=== PATIENT | female | born 2000 | race Asian ===

== ENCOUNTER 2021-01-04 17:54 | Emergency (ER) | payer MEDICAID ==
[~2021-01-04] VITALS: Ht 149.9 cm; Wt 59.1 kg
[~2021-01-04 17:54] MED LIST: NOCURR
[2021-01-04] MEDS ORDERED: MethylPREDNISolone SOD SUCC 125 MG/2 ML VIAL IVP ONE (18:15)
[2021-01-04] MEDS ORDERED: DiphenhydrAMINE HCL 25 MG CAPSULE PO ONE (18:15)
[2021-01-04] MEDS ORDERED: MethylPREDNISolone SOD SUCC 125 MG/2 ML VIAL IM ONE (18:30)
[2021-01-04 19:15] VITALS: BP 118/76
== END 2021-01-04 19:22 | disposition home or self-care (01) ==
LOC: EMS 18:00
DX: L50.0 Allergic urticaria (principal)
CPT/HCPCS: 96372; 99283; J2930; 99284

== ENCOUNTER 2022-02-25 13:53 | Inpatient (IN) | payer MEDICAID ==
[~2022-02-25] VITALS: Ht 149.9 cm; Wt 56.8 kg
[2022-02-25 17:17] LABS: APPEARANCE,URINE TURBID (CLEAR); GLUCOSE, URINE (UA) NEGATIVE (NEGATIVE); KETONES,URINE NEGATIVE (NEGATIVE); LEUKOCYTE ESTERASE ,URINE LARGE (NEGATIVE); NITRATE,URINE POSITIVE (NEGATIVE); OCCULT BLOOD,URINE SMALL (NEGATIVE); PH,URINE 5.5 (5.0-8.0); PROTEIN,URINE 100-200,SEE CONFIRM mg/dL (NEGATIVE); SPECIFIC GRAVITIY, URINE 1.011 (1.003-1.030)
[2022-02-25 17:24] LABS: BILIRUBIN,URINE SMALL (NEGATIVE)
[2022-02-25 17:29] LABS: BACTERIA,URINE Many /HPF (None Seen); COARSE GRANULAR CASTS,URINE 0-2 /LPF (None Seen); RBC,URINE 0-2 /HPF (0-2); SQUAMOUS EPITHELIAL CELL,UR Few /LPF (None Seen); WBC,URINE 26-50 /HPF (0-5)
[2022-02-25 17:30] LABS: SULFOSALICYLIC ACID,URINE 2+ (Negative)
[2022-02-25] MEDS ORDERED: CEPH-558 PO ×2 (18:11→18:52)
[2022-02-25] MEDS ORDERED: PHEN-846 PO (18:12)
[2022-02-25] MEDS ORDERED: SODIUM CHLORIDE 0.9% 1,000 ML IV ONE ×2 (18:30→20:15)
[2022-02-25] MEDS ORDERED: ONDANSETRON HCL 4 MG/2 ML VIAL IVP ONE (18:30)
[2022-02-25] MEDS ORDERED: SULF-261 PO (18:51)
[2022-02-25] MEDS ORDERED: CefTRIAXone 1 GM/DEXTROSE 50 ML IV ONE (19:00)
[2022-02-25] MEDS ORDERED: IBUPROFEN 600 MG TABLET PO ONE (20:15)
[2022-02-25] MEDS ORDERED: ACETAMINOPHEN 500 MG TABLET PO ONE (20:15)
[2022-02-25 21:06] LABS: BASOPHILS % (AUTO) 0.2 % (0.0-2.0); EOSINOPHILS % (AUTO) 0 % (1.0-6.0); LYMPHOCYTES # (AUTO) 0.7 K/uL (1.0-4.8); LYMPHOCYTES % (AUTO) 3.5 % (22.0-44.0); MEAN CORPUSCULAR HEMOGLOBIN 15.2 pg (26.0-34.0); MEAN CORPUSCULAR HGB CONC 28.1 G/dL (31.0-37.0); MEAN CORPUSCULAR VOLUME 54 fL (80-100); MONOCYTES # (AUTO) 2.6 K/uL (0.1-1.0); MONOCYTES % (AUTO) 12.5 % (2.0-9.0); NEUTROPHILS # (AUTO) 17.2 K/uL (1.8-7.7); NEUTROPHILS % (AUTO) 83.8 % (40.0-70.0); PLATELET COUNT (AUTO) 314 K/uL (150-450); RED BLOOD CELL COUNT(AUTO) 3.88 MIL/uL (4.00-5.20); RED CELL DISTRIBUTION WIDTH 19.6 % (11.5-14.5)
[2022-02-25 21:11] LABS: HEMOGLOBIN 5.9 g/dL (12.0-16.0)
[2022-02-25 21:19] LABS: CALCIUM, TOTAL 8.8 mg/dL (8.8-10.5); CREATININE 1.19 mg/dL (0.60-1.30); POTASSIUM 3.2 mmol/L (3.5-5.1)
[2022-02-25] MEDS ORDERED: ONDANSETRON HCL 4 MG/2 ML VIAL IVP PRN (21:30)
[2022-02-25] MEDS ORDERED: POTASSIUM CHLORIDE 10% 40 MEQ/30 ML LIQUID UDCUP PO ONE (21:45)
[2022-02-25] MEDS ORDERED: SODIUM CHLORIDE 0.9% 250 ML IV ONE (21:46)
[2022-02-25] MEDS ORDERED: MAGNESIUM OXIDE 400 MG TABLET PO PRN (22:15)
[2022-02-25] MEDS ORDERED: MAGNESIUM SULFATE 4 GM/WATER 100 ML IV PRN (22:15)
[2022-02-25] MEDS ORDERED: MAGNESIUM SULFATE 2 GM/WATER 50 ML IV PRN (22:15)
[2022-02-25 22:28] LABS: RETICULOCYTE % (AUTO) 1.9 % (0.5-2.3)
[2022-02-25] MEDS ORDERED: SODIUM CHLORIDE 0.9% 100 ML ONE (22:43)
[2022-02-25] MEDS ORDERED: IOHEXOL 300 MG/ML 100 ML VIAL ONE (22:44)
[2022-02-25 22:51] LABS: ALBUMIN 3.1 g/dL (3.4-5.0)
[2022-02-25] MEDS: RINGERS SOLUTION,LACTATED 1,000 ML IV SCH (22:58)
[2022-02-25] MEDS ORDERED: POTASSIUM CHLORIDE 20 MEQ ER TABLET PO ONE (23:00)
[2022-02-25 23:23] LABS: % IRON SATURATION 1.7 % (22-44)
[2022-02-25 23:30] VITALS: BP 94/53
[2022-02-25 23:45] VITALS: BP 92/54
[2022-02-26] VITALS (11 sets, daily range): BP systolic 88–136; BP diastolic 49–69
[2022-02-26] MEDS ORDERED: RINGERS SOLUTION,LACTATED 500 ML IV ONE (01:00)
[2022-02-26] MEDS ORDERED: INFLUENZA VIRUS VACCINE QVS 2022-23 (6MO+)/PF 60 MCG/0.5 ML SYRINGE IM. ONE (03:45)
[2022-02-26 06:45] LABS: BASOPHILS % (AUTO) 0.1 % (0.0-2.0); EOSINOPHILS % (AUTO) 0.1 % (1.0-6.0); HEMATOCRIT 27.5 % (36-46); HEMOGLOBIN 7.8 g/dL (12.0-16.0); LYMPHOCYTES # (AUTO) 0.9 K/uL (1.0-4.8); LYMPHOCYTES % (AUTO) 4.1 % (22.0-44.0); MEAN CORPUSCULAR HEMOGLOBIN 16.3 pg (26.0-34.0); MEAN CORPUSCULAR HGB CONC 28.3 G/dL (31.0-37.0); MEAN CORPUSCULAR VOLUME 58 fL (80-100); MONOCYTES # (AUTO) 1.7 K/uL (0.1-1.0); MONOCYTES % (AUTO) 7.9 % (2.0-9.0); PLATELET COUNT (AUTO) 311 K/uL (150-450); RED BLOOD CELL COUNT(AUTO) 4.77 MIL/uL (4.00-5.20); RED CELL DISTRIBUTION WIDTH 21.6 % (11.5-14.5)
[2022-02-26 06:51] LABS: NEUTROPHILS % (AUTO) 87.8 % (40.0-70.0)
[2022-02-26 07:06] LABS: ANION GAP 12 mmol/L (8-16); CALCIUM, TOTAL 9.1 mg/dL (8.8-10.5); CARBON DIOXIDE 22 mmol/L (22-29); CHLORIDE 101 mmol/L (98-107); CREATININE 1.08 mg/dL (0.60-1.30); GLOMERULAR FILTR. RATE CALC > 60 mL/min (>60); GLUCOSE,RANDOM 101 mg/dL (70-110); POTASSIUM 4.1 mmol/L (3.5-5.1); SODIUM SERUM 135 mmol/L (136-145); UREA NITROGEN, BLOOD 11 mg/dL (7-18)
[2022-02-26] MEDS: ACETAMINOPHEN 325 MG TABLET PO PRN ×2 (07:18→13:04)
[2022-02-26] MEDS: RINGERS SOLUTION,LACTATED 1,000 ML IV SCH ×2 (07:20→23:06)
[2022-02-26] MEDS: CefTRIAXone 1 GM/DEXTROSE 50 ML IV SCH (18:20)
[2022-02-26] MEDS ORDERED: ZOLPIDEM TARTRATE 5 MG TABLET PO PRN (20:15)
[2022-02-26] MEDS ORDERED: MAGNESIUM HYDROXIDE SUSPENSION 30 ML UDCUP PO PRN (20:15)
[2022-02-26] MEDS: DOCUSATE SODIUM 100 MG CAPSULE PO SCH (20:30)
[2022-02-27 04:00] VITALS: BP 121/69
[2022-02-27] MEDS: ACETAMINOPHEN 325 MG TABLET PO PRN ×3 (05:19→21:15)
[2022-02-27] MEDS: RINGERS SOLUTION,LACTATED 1,000 ML IV SCH ×2 (08:51→20:45)
[2022-02-27] MEDS: DOCUSATE SODIUM 100 MG CAPSULE PO SCH ×2 (08:56→20:45)
[2022-02-27 15:28] VITALS: BP 108/71
[2022-02-27] MEDS: CefTRIAXone 1 GM/DEXTROSE 50 ML IV SCH (18:00)
[2022-02-27 19:20] VITALS: BP 158/67
[2022-02-28] VITALS (12 sets, daily range): BP systolic 113–141; BP diastolic 67–90
[2022-02-28] MEDS: ACETAMINOPHEN 325 MG TABLET PO PRN (03:33)
[2022-02-28] MEDS: RINGERS SOLUTION,LACTATED 1,000 ML IV SCH ×2 (06:23→08:20)
[2022-02-28 06:53] LABS: BASOPHILS % (AUTO) 0.5 % (0.0-2.0); EOSINOPHILS % (AUTO) 1.4 % (1.0-6.0); HEMATOCRIT 22.3 % (36-46); LYMPHOCYTES # (AUTO) 1.6 K/uL (1.0-4.8); LYMPHOCYTES % (AUTO) 13.5 % (22.0-44.0); MEAN CORPUSCULAR HEMOGLOBIN 16.5 pg (26.0-34.0); MEAN CORPUSCULAR HGB CONC 29.3 G/dL (31.0-37.0); MEAN CORPUSCULAR VOLUME 56 fL (80-100); MONOCYTES # (AUTO) 1.1 K/uL (0.1-1.0); MONOCYTES % (AUTO) 9.6 % (2.0-9.0); NEUTROPHILS # (AUTO) 8.7 K/uL (1.8-7.7); PLATELET COUNT (AUTO) 318 K/uL (150-450); RED BLOOD CELL COUNT(AUTO) 3.96 MIL/uL (4.00-5.20); RED CELL DISTRIBUTION WIDTH 21.3 % (11.5-14.5)
[2022-02-28 06:59] LABS: HEMOGLOBIN 6.5 g/dL (12.0-16.0)
[2022-02-28] MEDS: DOCUSATE SODIUM 100 MG CAPSULE PO SCH ×2 (08:19→20:10)
[2022-02-28] MEDS ORDERED: SODIUM CHLORIDE 0.9% 1,000 ML ONE (14:32)
[2022-02-28 15:24] LABS: % IRON SATURATION 5.4 % (22-44)
[2022-02-28] MEDS ORDERED: VANCOMYCIN HCL 1.25 GM in DEXTROSE 5%-WATER 250 ML IV ONE (17:00)
[2022-02-28] MEDS ORDERED: SODIUM CHLORIDE 0.9% 500 ML IV ONE (19:16)
[2022-02-28 20:15] LABS: HEMATOCRIT 28.3 % (36-46); HEMOGLOBIN 8.4 g/dL (12.0-16.0)
[2022-02-28] MEDS: CefTRIAXone 1 GM/DEXTROSE 50 ML IV SCH (21:25)
[2022-03-01] MEDS: RINGERS SOLUTION,LACTATED 1,000 ML IV SCH ×3 (00:50→15:45)
[2022-03-01 04:30] VITALS: BP 140/88
[2022-03-01 07:04] LABS: ANION GAP 5 mmol/L (8-16); CALCIUM, TOTAL 8.6 mg/dL (8.8-10.5); CARBON DIOXIDE 27 mmol/L (22-29); CHLORIDE 107 mmol/L (98-107); GLUCOSE,RANDOM 99 mg/dL (70-110); POTASSIUM 3.6 mmol/L (3.5-5.1); SODIUM SERUM 139 mmol/L (136-145); UREA NITROGEN, BLOOD 2 mg/dL (7-18)
[2022-03-01 07:05] LABS: GLOMERULAR FILTR. RATE CALC > 60 mL/min (>60)
[2022-03-01 08:15] VITALS: BP 139/90
[2022-03-01] MEDS: VANCOMYCIN HCL 1 GM in DEXTROSE 5%-WATER 250 ML IV SCH ×2 (08:16→19:49)
[2022-03-01] MEDS: DOCUSATE SODIUM 100 MG CAPSULE PO SCH ×2 (08:17→19:59)
[2022-03-01 10:48] LABS: BASOPHILS % (AUTO) 0.9 % (0.0-2.0); EOSINOPHILS % (AUTO) 4.1 % (1.0-6.0); HEMATOCRIT 29.5 % (36-46); HEMOGLOBIN 8.7 g/dL (12.0-16.0); LYMPHOCYTES % (AUTO) 15.1 % (22.0-44.0); MEAN CORPUSCULAR HEMOGLOBIN 17.8 pg (26.0-34.0); MEAN CORPUSCULAR HGB CONC 29.5 G/dL (31.0-37.0); MEAN CORPUSCULAR VOLUME 61 fL (80-100); MONOCYTES # (AUTO) 1.5 K/uL (0.1-1.0); NEUTROPHILS # (AUTO) 9.1 K/uL (1.8-7.7); NEUTROPHILS % (AUTO) 68.9 % (40.0-70.0); PLATELET COUNT (AUTO) 416 K/uL (150-450); RED BLOOD CELL COUNT(AUTO) 4.88 MIL/uL (4.00-5.20); RED CELL DISTRIBUTION WIDTH 27.6 % (11.5-14.5)
[2022-03-01 11:03] LABS: ANION GAP 7 mmol/L (8-16); CALCIUM, TOTAL 9.2 mg/dL (8.8-10.5); CARBON DIOXIDE 26 mmol/L (22-29); CHLORIDE 105 mmol/L (98-107); CREATININE 0.83 mg/dL (0.60-1.30); GLOMERULAR FILTR. RATE CALC > 60 mL/min (>60); GLUCOSE,RANDOM 97 mg/dL (70-110); POTASSIUM 3.3 mmol/L (3.5-5.1); SODIUM SERUM 138 mmol/L (136-145); UREA NITROGEN, BLOOD 2 mg/dL (7-18)
[2022-03-01 11:08] LABS: ALANINE AMINOTRANSFERASE 152 U/L (12-78); ALBUMIN 2.7 g/dL (3.4-5.0); ALKALINE PHOSPHATASE 194 U/L (46-116); ASPARTATE AMINOTRANSFERASE 124 U/L (15-37); BILIRUBIN,TOTAL 0.3 mg/dL (0.1-1.0); TOTAL PROTEIN, SERUM 7.8 g/dL (6.4-8.2)
[2022-03-01 11:47] LABS: COVID AG,FIA SOURCE NASAL SWAB
[2022-03-01] MEDS ORDERED: POTASSIUM CHLORIDE 20 MEQ ER TABLET PO ONE (15:15)
[2022-03-01 15:57] VITALS: BP 132/71
[2022-03-01] MEDS: CefTRIAXone 1 GM/DEXTROSE 50 ML IV SCH (18:40)
[2022-03-01 19:46] VITALS: BP 126/74
[2022-03-02 05:15] VITALS: BP 138/90
[2022-03-02 07:28] VITALS: BP 151/92
[2022-03-02] MEDS: DOCUSATE SODIUM 100 MG CAPSULE PO SCH ×2 (08:04→21:00)
[2022-03-02] MEDS: VANCOMYCIN HCL 1 GM in DEXTROSE 5%-WATER 250 ML IV SCH (08:04)
[2022-03-02 08:43] LABS: ANION GAP 8 mmol/L (8-16); CALCIUM, TOTAL 8.8 mg/dL (8.8-10.5); CARBON DIOXIDE 24 mmol/L (22-29); CHLORIDE 105 mmol/L (98-107); CREATININE 0.77 mg/dL (0.60-1.30); GLUCOSE,RANDOM 90 mg/dL (70-110); POTASSIUM 3.9 mmol/L (3.5-5.1); SODIUM SERUM 137 mmol/L (136-145); UREA NITROGEN, BLOOD 3 mg/dL (7-18); VANCOMYCIN,RANDOM 13.6 mcg/mL (25.0-50.0)
[2022-03-02 08:44] LABS: GLOMERULAR FILTR. RATE CALC > 60 mL/min (>60)
[2022-03-02 09:00] VITALS: BP 133/83
[2022-03-02 15:51] VITALS: BP 135/81
[2022-03-02] MEDS ORDERED: VANCOMYCIN HCL 750 MG in DEXTROSE 5%-WATER 250 ML IV SCH (16:00)
[2022-03-02] MEDS: CefTRIAXone 1 GM/DEXTROSE 50 ML IV SCH (17:37)
[2022-03-02 18:00] LABS: EOSINOPHILS % (AUTO) 4.5 % (1.0-6.0); HEMATOCRIT 30.7 % (36-46); HEMOGLOBIN 9.1 g/dL (12.0-16.0); LYMPHOCYTES # (AUTO) 1.9 K/uL (1.0-4.8); LYMPHOCYTES % (AUTO) 14.5 % (22.0-44.0); MEAN CORPUSCULAR HEMOGLOBIN 18.1 pg (26.0-34.0); MEAN CORPUSCULAR HGB CONC 29.6 G/dL (31.0-37.0); MEAN CORPUSCULAR VOLUME 61 fL (80-100); MONOCYTES # (AUTO) 1.1 K/uL (0.1-1.0); MONOCYTES % (AUTO) 8.4 % (2.0-9.0); NEUTROPHILS # (AUTO) 9.2 K/uL (1.8-7.7); NEUTROPHILS % (AUTO) 71.6 % (40.0-70.0); PLATELET COUNT (AUTO) 495 K/uL (150-450); RED BLOOD CELL COUNT(AUTO) 5.03 MIL/uL (4.00-5.20); RED CELL DISTRIBUTION WIDTH 28.7 % (11.5-14.5)
[2022-03-02 18:03] LABS: ANION GAP 8 mmol/L (8-16); CALCIUM, TOTAL 9.3 mg/dL (8.8-10.5); CARBON DIOXIDE 28 mmol/L (22-29); CHLORIDE 101 mmol/L (98-107); CREATININE 0.77 mg/dL (0.60-1.30); GLUCOSE,RANDOM 102 mg/dL (70-110); POTASSIUM 4.4 mmol/L (3.5-5.1); SODIUM SERUM 137 mmol/L (136-145); UREA NITROGEN, BLOOD 3 mg/dL (7-18)
[2022-03-02 18:04] LABS: GLOMERULAR FILTR. RATE CALC > 60 mL/min (>60)
[2022-03-02 18:10] LABS: ALANINE AMINOTRANSFERASE 287 U/L (12-78); ALBUMIN 2.9 g/dL (3.4-5.0); ALKALINE PHOSPHATASE 225 U/L (46-116); ASPARTATE AMINOTRANSFERASE 143 U/L (15-37); BILIRUBIN,TOTAL 0.3 mg/dL (0.1-1.0); TOTAL PROTEIN, SERUM 8.1 g/dL (6.4-8.2)
[2022-03-02 18:13] LABS: PLATELET MORPHOLOGY COMMENT LARGE PLTS PRESENT
[2022-03-02 20:37] VITALS: BP 122/74
[2022-03-03 04:00] VITALS: BP 121/73
[2022-03-03 07:35] LABS: ANION GAP 7 mmol/L (8-16); CALCIUM, TOTAL 8.8 mg/dL (8.8-10.5); CARBON DIOXIDE 27 mmol/L (22-29); CHLORIDE 104 mmol/L (98-107); CREATININE 0.73 mg/dL (0.60-1.30); GLUCOSE,RANDOM 99 mg/dL (70-110); POTASSIUM 3.8 mmol/L (3.5-5.1); SODIUM SERUM 138 mmol/L (136-145); UREA NITROGEN, BLOOD 3 mg/dL (7-18)
[2022-03-03 07:36] LABS: GLOMERULAR FILTR. RATE CALC > 60 mL/min (>60)
[2022-03-03 08:28] LABS: BASOPHILS % (AUTO) 0.4 % (0.0-2.0); EOSINOPHILS % (AUTO) 3.7 % (1.0-6.0); HEMATOCRIT 29.1 % (36-46); HEMOGLOBIN 8.6 g/dL (12.0-16.0); LYMPHOCYTES # (AUTO) 1.8 K/uL (1.0-4.8); LYMPHOCYTES % (AUTO) 12.7 % (22.0-44.0); MEAN CORPUSCULAR HEMOGLOBIN 17.9 pg (26.0-34.0); MEAN CORPUSCULAR HGB CONC 29.4 G/dL (31.0-37.0); MEAN CORPUSCULAR VOLUME 61 fL (80-100); MONOCYTES # (AUTO) 1.1 K/uL (0.1-1.0); MONOCYTES % (AUTO) 7.6 % (2.0-9.0); NEUTROPHILS # (AUTO) 10.9 K/uL (1.8-7.7); NEUTROPHILS % (AUTO) 75.6 % (40.0-70.0); PLATELET COUNT (AUTO) 458 K/uL (150-450); RED BLOOD CELL COUNT(AUTO) 4.77 MIL/uL (4.00-5.20); RED CELL DISTRIBUTION WIDTH 29.5 % (11.5-14.5)
[2022-03-03] MEDS: DOCUSATE SODIUM 100 MG CAPSULE PO SCH (09:00)
[2022-03-03] MEDS: CefTRIAXone 1 GM/DEXTROSE 50 ML IV SCH (09:25)
[2022-03-03] MEDS ORDERED: IRON DEXTRAN COMPLEX 100 MG in SODIUM CHLORIDE 0.9% 100 ML IV SCH (13:15)
[2022-03-03 13:49] LABS: BASOPHILS % (AUTO) 0.7 % (0.0-2.0); EOSINOPHILS % (AUTO) 3.1 % (1.0-6.0); HEMATOCRIT 29.4 % (36-46); HEMOGLOBIN 8.7 g/dL (12.0-16.0); LYMPHOCYTES # (AUTO) 1.8 K/uL (1.0-4.8); LYMPHOCYTES % (AUTO) 13.3 % (22.0-44.0); MEAN CORPUSCULAR HEMOGLOBIN 18.1 pg (26.0-34.0); MEAN CORPUSCULAR HGB CONC 29.4 G/dL (31.0-37.0); MEAN CORPUSCULAR VOLUME 61 fL (80-100); MONOCYTES # (AUTO) 1.2 K/uL (0.1-1.0); NEUTROPHILS # (AUTO) 10.2 K/uL (1.8-7.7); NEUTROPHILS % (AUTO) 73.9 % (40.0-70.0); PLATELET COUNT (AUTO) 501 K/uL (150-450); RED BLOOD CELL COUNT(AUTO) 4.79 MIL/uL (4.00-5.20); RED CELL DISTRIBUTION WIDTH 29.1 % (11.5-14.5)
[2022-03-03] MEDS ORDERED: SULF-261 PO (15:01)
[2022-03-03] MEDS ORDERED: FERR325T27 PO (15:01)
[2022-03-03] MEDS ORDERED: DOCU-385 PO (15:01)
[2022-03-03] MEDS ORDERED: SULFAMETHOX/TRIMETH DS 800-160 MG/TABLET PO ONE (15:15)
[2022-03-03] MEDS ORDERED: FERROUS SULFATE 325 MG EC TABLET PO SCH (18:00)
== END 2022-03-03 16:45 | disposition home or self-care (01) | DRG 720 ==
LOC: EMS 13:53 → 6N 02-26 00:01 → 6S 02-28 22:40
PROVIDERS: ADMIT Internal Medicine; ATTEND Internal Medicine
PROC: 30233N1 Transfusion of Nonautologous Red Blood Cells into Peripheral Vein, Percutaneous Approach (ICD-10-PCS; principal; 2022-02-25)
PROC: 30233N1 Transfusion of Nonautologous Red Blood Cells into Peripheral Vein, Percutaneous Approach (ICD-10-PCS; 2022-02-28)
DX: A41.9 Sepsis, unspecified organism (principal); E87.1 Hypo-osmolality and hyponatremia; N10 Acute pyelonephritis; N92.0 Excessive and frequent menstruation with regular cycle; D64.9 Anemia, unspecified; E87.6 Hypokalemia; Z20.822 Contact with and (suspected) exposure to COVID-19
CPT/HCPCS: 36430; 71045; 74177; 76770; 80048; 80053; 80202; 81001; 81002; 82040; 83036; 83540; 83550; 83735; 84703; 85014; 85018; 85025; 85045; 86850; 86900; 86901; 86923; 87040; 87077; 87086; 87186; 87205; 96365; 99285; J0696; J1750; J2405; J3370; J7030; J7040; J7050; J7060; J7120; P9016; Q9967; 36415-L1; 36415-TC

== ENCOUNTER 2023-01-07 17:36 | Inpatient (IN) | payer SELFPAY ==
[~2023-01-07] VITALS: Ht 152.4 cm; Wt 58.5 kg
[2023-01-07] VITALS (7 sets, daily range): BP systolic 97–130; BP diastolic 35–69; PULSE 106–129; RESP 18–26; TEMP 98.5–101.8
[~2023-01-07 17:36] MED LIST changes: +DOCU-385 PO; +FERR325T27 PO; -NOCURR; +SULF-261 PO
[2023-01-07] MEDS ORDERED: 0.9% SODIUM CHLORIDE 10 ML SYRINGE IVP PRN (17:45)
[2023-01-07] MEDS ORDERED: SODIUM CHLORIDE 0.9% 1,650 ML IV ONE (17:45)
[2023-01-07] MEDS ORDERED: ACETAMINOPHEN 1000 MG/ISO-OSM 100 ML IV ONE (18:00)
[2023-01-07 18:28] LABS: COVID AG,FIA SOURCE NASAL SWAB
[2023-01-07 18:30] LABS: BASOPHILS % (AUTO) 0.3 % (0.0-2.0); EOSINOPHILS % (AUTO) 0 % (1.0-6.0); LYMPHOCYTES # (AUTO) 0.6 K/uL (1.0-4.8); LYMPHOCYTES % (AUTO) 3.1 % (22.0-44.0); MEAN CORPUSCULAR HEMOGLOBIN 15.1 pg (26.0-34.0); MEAN CORPUSCULAR HGB CONC 28.1 G/dL (31.0-37.0); MEAN CORPUSCULAR VOLUME 54 fL (80-100); MONOCYTES # (AUTO) 1.8 K/uL (0.1-1.0); NEUTROPHILS # (AUTO) 17.4 K/uL (1.8-7.7); PLATELET COUNT (AUTO) 338 K/uL (150-450); RED BLOOD CELL COUNT(AUTO) 4.28 MIL/uL (4.00-5.20); RED CELL DISTRIBUTION WIDTH 20.4 % (11.5-14.5); WHITE BLOOD COUNT (AUTO) 19.9 K/uL (4.5-11.0)
[2023-01-07 18:36] LABS: ANION GAP 13 mmol/L (8-16); CALCIUM, TOTAL 9.1 mg/dL (8.8-10.5); CARBON DIOXIDE 21 mmol/L (22-29); CHLORIDE 94 mmol/L (98-107); CREATININE 1.11 mg/dL (0.60-1.30); GLOMERULAR FILTR. RATE CALC > 60 mL/min (>60); GLUCOSE,RANDOM 142 mg/dL (70-110); POTASSIUM 3.2 mmol/L (3.5-5.1); SODIUM SERUM 128 mmol/L (136-145); UREA NITROGEN, BLOOD 11 mg/dL (7-18)
[2023-01-07 18:39] LABS: INFLUENZA TYPE A NEGATIVE FOR TYPE A (NEGATIVE); INFLUENZA TYPE B NEGATIVE FOR TYPE B (NEGATIVE)
[2023-01-07 18:40] LABS: SARS-COV2 (COVID) ANTIGEN,FIA Negative (Negative)
[2023-01-07 18:41] LABS: HEMOGLOBIN 6.5 g/dL (12.0-16.0); NEUTROPHILS % (AUTO) 87.6 % (40.0-70.0)
[2023-01-07 18:42] LABS: INR 1.1 (0.9-1.1); PROTHROMBIN TIME 11.5 SEC (9.4-11.6)
[2023-01-07 18:51] LABS: ALANINE AMINOTRANSFERASE 30 U/L (12-78); ALBUMIN 3.6 g/dL (3.4-5.0); ALKALINE PHOSPHATASE 92 U/L (46-116); ASPARTATE AMINOTRANSFERASE 21 U/L (15-37); BILIRUBIN,TOTAL 0.9 mg/dL (0.1-1.0); HCG,QUANTITATIVE < 1 mIU/mL (0-6); TOTAL PROTEIN, SERUM 8.4 g/dL (6.4-8.2)
[2023-01-07] MEDS ORDERED: CefTRIAXone 1 GM/DEXTROSE 50 ML IV ONE (19:00)
[2023-01-07 19:31] LABS: RBC MORPHOLOGY COMMENT ABNORMAL RBC MORPH
[2023-01-07 19:45] LABS: APPEARANCE,URINE HAZY (CLEAR); BILIRUBIN,URINE NEGATIVE (NEGATIVE); COLOR,URINE YELLOW (YELLOW); GLUCOSE, URINE (UA) NEGATIVE (NEGATIVE); LEUKOCYTE ESTERASE ,URINE LARGE (NEGATIVE); NITRATE,URINE POSITIVE (NEGATIVE); OCCULT BLOOD,URINE TRACE (NEGATIVE); PROTEIN,URINE 30-70 mg/dL (NEGATIVE); UROBILINOGEN,URINE <=1.0 mg/dL (<=1.0)
[2023-01-07 19:58] LABS: BACTERIA,URINE Many /HPF (None Seen); RBC,URINE None Seen /HPF (0-2); WBC,URINE 51-100 /HPF (0-5)
[2023-01-07 19:59] LABS: SQUAMOUS EPITHELIAL CELL,UR Few /LPF (None Seen)
[2023-01-07] MEDS ORDERED: *CLINICAL-AZTREONAM DOSING CLINICAL ONE (20:45)
[2023-01-07] MEDS ORDERED: ONDANSETRON HCL 4 MG/2 ML VIAL IVP PRN (20:45)
[2023-01-07] MEDS ORDERED: *CLINICAL-CEFEPIME DOSING CLINICAL ONE (20:45)
[2023-01-07] MEDS: RINGERS SOLUTION,LACTATED 1,000 ML IV SCH (21:57)
[2023-01-07] MEDS: ACETAMINOPHEN 325 MG TABLET PO PRN (22:35)
[2023-01-07] MEDS: AZTREONAM 2 GM in DEXTROSE 5%-WATER 50 ML IV SCH (22:35)
[2023-01-07] MEDS ORDERED: POTASSIUM CHLORIDE 10% 40 MEQ/30 ML LIQUID UDCUP PO ONE (23:45)
[2023-01-08] VITALS (13 sets, daily range): BP systolic 90–131; BP diastolic 50–78; PULSE 86–125; RESP 18–20; TEMP 98–101.3
[2023-01-08] MEDS ORDERED: SODIUM CHLORIDE 0.9% 500 ML IV ONE (00:04)
[2023-01-08] MEDS ORDERED: MEROPENEM 2 GM in SODIUM CHLORIDE 0.9% 100 ML IV ONE (01:00)
[2023-01-08] MEDS: ACETAMINOPHEN 325 MG TABLET PO PRN ×3 (04:30→21:38)
[2023-01-08] MEDS: RINGERS SOLUTION,LACTATED 1,000 ML IV SCH ×2 (05:59→14:19)
[2023-01-08] MEDS: AZTREONAM 2 GM in DEXTROSE 5%-WATER 50 ML IV SCH ×3 (06:00→21:30)
[2023-01-08 08:07] LABS: BASOPHILS % (AUTO) 0.5 % (0.0-2.0); EOSINOPHILS % (AUTO) 0 % (1.0-6.0); HEMATOCRIT 22.7 % (36-46); LYMPHOCYTES # (AUTO) 0.6 K/uL (1.0-4.8); LYMPHOCYTES % (AUTO) 2.9 % (22.0-44.0); MEAN CORPUSCULAR HEMOGLOBIN 17.6 pg (26.0-34.0); MEAN CORPUSCULAR HGB CONC 29.9 G/dL (31.0-37.0); MEAN CORPUSCULAR VOLUME 59 fL (80-100); MONOCYTES # (AUTO) 2.4 K/uL (0.1-1.0); MONOCYTES % (AUTO) 12.9 % (2.0-9.0); NEUTROPHILS # (AUTO) 15.8 K/uL (1.8-7.7); NEUTROPHILS % (AUTO) 83.7 % (40.0-70.0); PLATELET COUNT (AUTO) 269 K/uL (150-450); RED BLOOD CELL COUNT(AUTO) 3.85 MIL/uL (4.00-5.20); RED CELL DISTRIBUTION WIDTH 24.8 % (11.5-14.5); WHITE BLOOD COUNT (AUTO) 18.8 K/uL (4.5-11.0)
[2023-01-08 08:25] LABS: ANION GAP 9 mmol/L (8-16); CALCIUM, TOTAL 7.6 mg/dL (8.8-10.5); CARBON DIOXIDE 20 mmol/L (22-29); CHLORIDE 106 mmol/L (98-107); CREATININE 0.89 mg/dL (0.60-1.30); GLOMERULAR FILTR. RATE CALC > 60 mL/min (>60); GLUCOSE,RANDOM 105 mg/dL (70-110); POTASSIUM 3.9 mmol/L (3.5-5.1); SODIUM SERUM 135 mmol/L (136-145); UREA NITROGEN, BLOOD 6 mg/dL (7-18)
[2023-01-08 08:34] LABS: HEMOGLOBIN 6.8 g/dL (12.0-16.0)
[2023-01-08 08:35] LABS: RBC MORPHOLOGY COMMENT ABNORMAL RBC MORPH
[2023-01-08] MEDS: CEFEPIME HCL 2 GM in DEXTROSE 5%-WATER 50 ML IV SCH ×2 (09:12→20:17)
[2023-01-08] MEDS ORDERED: DiphenhydrAMINE HCL 50 MG/ML VIAL IVP ONE (14:15)
[2023-01-08 19:59] LABS: APPEARANCE,URINE CLEAR (CLEAR); BILIRUBIN,URINE NEGATIVE (NEGATIVE); COLOR,URINE COLORLESS (YELLOW); GLUCOSE, URINE (UA) 70-100 mg/dL (NEGATIVE); LEUKOCYTE ESTERASE ,URINE MODERATE (NEGATIVE); NITRATE,URINE NEGATIVE (NEGATIVE); OCCULT BLOOD,URINE NEGATIVE (NEGATIVE); PROTEIN,URINE NEGATIVE (NEGATIVE); SPECIFIC GRAVITIY, URINE 1.005 (1.003-1.030); UROBILINOGEN,URINE <=1.0 mg/dL (<=1.0)
[2023-01-08 20:07] LABS: BACTERIA,URINE Few /HPF (None Seen); RBC,URINE None Seen /HPF (0-2); SQUAMOUS EPITHELIAL CELL,UR Few /LPF (None Seen)
[2023-01-08] MEDS: HEPARIN SODIUM,PORCINE 5,000 UNITS/ML VIAL SQ SCH (23:45)
[2023-01-09] VITALS (13 sets, daily range): BP systolic 96–121; BP diastolic 49–73; PULSE 68–100; RESP 16–19; TEMP 97.5–99.7
[2023-01-09] MEDS: RINGERS SOLUTION,LACTATED 1,000 ML IV SCH (03:40)
[2023-01-09] MEDS: AZTREONAM 2 GM in DEXTROSE 5%-WATER 50 ML IV SCH ×3 (05:44→22:04)
[2023-01-09 06:58] LABS: BASOPHILS % (AUTO) 0.3 % (0.0-2.0); EOSINOPHILS % (AUTO) 0.7 % (1.0-6.0); HEMATOCRIT 24.2 % (36-46); HEMOGLOBIN 7.1 g/dL (12.0-16.0); LYMPHOCYTES % (AUTO) 8.1 % (22.0-44.0); MEAN CORPUSCULAR HEMOGLOBIN 17.4 pg (26.0-34.0); MEAN CORPUSCULAR HGB CONC 29.4 G/dL (31.0-37.0); MEAN CORPUSCULAR VOLUME 59 fL (80-100); MONOCYTES # (AUTO) 1.3 K/uL (0.1-1.0); MONOCYTES % (AUTO) 10.2 % (2.0-9.0); NEUTROPHILS # (AUTO) 10.3 K/uL (1.8-7.7); NEUTROPHILS % (AUTO) 80.7 % (40.0-70.0); PLATELET COUNT (AUTO) 242 K/uL (150-450); RED BLOOD CELL COUNT(AUTO) 4.08 MIL/uL (4.00-5.20); RED CELL DISTRIBUTION WIDTH 25.2 % (11.5-14.5); WHITE BLOOD COUNT (AUTO) 12.8 K/uL (4.5-11.0)
[2023-01-09] MEDS: HEPARIN SODIUM,PORCINE 5,000 UNITS/ML VIAL SQ SCH ×2 (08:00→17:09)
[2023-01-09] MEDS: CEFEPIME HCL 2 GM in DEXTROSE 5%-WATER 50 ML IV SCH ×2 (08:02→20:47)
[2023-01-09 08:14] LABS: RBC MORPHOLOGY COMMENT DIMORPHIC RBC
[2023-01-09] MEDS ORDERED: DiphenhydrAMINE HCL 50 MG/ML VIAL IVP ONE (09:15)
[2023-01-09] MEDS ORDERED: ACETAMINOPHEN 325 MG TABLET PO ONE (09:15)
[2023-01-09 19:46] LABS: BASOPHILS % (AUTO) 0.3 % (0.0-2.0); EOSINOPHILS % (AUTO) 1.5 % (1.0-6.0); HEMATOCRIT 27.9 % (36-46); HEMOGLOBIN 8.4 g/dL (12.0-16.0); LYMPHOCYTES % (AUTO) 10.5 % (22.0-44.0); MEAN CORPUSCULAR VOLUME 64 fL (80-100); MONOCYTES # (AUTO) 0.9 K/uL (0.1-1.0); MONOCYTES % (AUTO) 8.8 % (2.0-9.0); NEUTROPHILS # (AUTO) 7.8 K/uL (1.8-7.7); NEUTROPHILS % (AUTO) 78.9 % (40.0-70.0); PLATELET COUNT (AUTO) 269 K/uL (150-450); RED CELL DISTRIBUTION WIDTH 29.9 % (11.5-14.5); WHITE BLOOD COUNT (AUTO) 9.8 K/uL (4.5-11.0)
[2023-01-09 19:53] LABS: ANION GAP 8 mmol/L (8-16); CALCIUM, TOTAL 8.5 mg/dL (8.8-10.5); CARBON DIOXIDE 24 mmol/L (22-29); CHLORIDE 107 mmol/L (98-107); GLOMERULAR FILTR. RATE CALC > 60 mL/min (>60); GLUCOSE,RANDOM 147 mg/dL (70-110); POTASSIUM 3.9 mmol/L (3.5-5.1); SODIUM SERUM 139 mmol/L (136-145); UREA NITROGEN, BLOOD 4 mg/dL (7-18)
[2023-01-09 20:17] LABS: RBC MORPHOLOGY COMMENT DIMORPHIC RBC
[2023-01-10 00:10] VITALS: BP 109/66; PULSE 93; RESP 18; TEMP 99.6
[2023-01-10] MEDS: HEPARIN SODIUM,PORCINE 5,000 UNITS/ML VIAL SQ SCH ×4 (00:21→23:25)
[2023-01-10 04:44] VITALS: BP 103/61; PULSE 79; RESP 18; TEMP 99.3
[2023-01-10] MEDS: AZTREONAM 2 GM in DEXTROSE 5%-WATER 50 ML IV SCH ×3 (05:47→22:14)
[2023-01-10 08:00] VITALS: BP 122/63; PULSE 76; RESP 18; TEMP 98.4
[2023-01-10] MEDS: CEFEPIME HCL 2 GM in DEXTROSE 5%-WATER 50 ML IV SCH ×2 (08:26→20:57)
[2023-01-10 12:30] VITALS: BP 109/51; PULSE 74; RESP 18; TEMP 98.3
[2023-01-10 16:03] VITALS: BP 122/75; PULSE 81; RESP 18; TEMP 98.2
[2023-01-10 23:26] VITALS: BP 116/71; PULSE 77; RESP 17; TEMP 98
[2023-01-11] VITALS: BP 119/75; PULSE 79; RESP 16; TEMP 98.2
[2023-01-11 04:00] VITALS: BP 123/65; PULSE 68; RESP 18; TEMP 97.8
[2023-01-11] MEDS: AZTREONAM 2 GM in DEXTROSE 5%-WATER 50 ML IV SCH ×3 (05:05→22:43)
[2023-01-11 06:59] LABS: BASOPHILS % (AUTO) 0.7 % (0.0-2.0); EOSINOPHILS % (AUTO) 5.5 % (1.0-6.0); HEMATOCRIT 29.1 % (36-46); HEMOGLOBIN 8.8 g/dL (12.0-16.0); LYMPHOCYTES # (AUTO) 1.4 K/uL (1.0-4.8); LYMPHOCYTES % (AUTO) 20.3 % (22.0-44.0); MEAN CORPUSCULAR HGB CONC 30.2 G/dL (31.0-37.0); MEAN CORPUSCULAR VOLUME 63 fL (80-100); MONOCYTES # (AUTO) 0.7 K/uL (0.1-1.0); MONOCYTES % (AUTO) 10.2 % (2.0-9.0); NEUTROPHILS # (AUTO) 4.2 K/uL (1.8-7.7); NEUTROPHILS % (AUTO) 63.3 % (40.0-70.0); PLATELET COUNT (AUTO) 351 K/uL (150-450); RED BLOOD CELL COUNT(AUTO) 4.62 MIL/uL (4.00-5.20); RED CELL DISTRIBUTION WIDTH 31.7 % (11.5-14.5); WHITE BLOOD COUNT (AUTO) 6.7 K/uL (4.5-11.0)
[2023-01-11] MEDS: HEPARIN SODIUM,PORCINE 5,000 UNITS/ML VIAL SQ SCH ×2 (08:00→16:00)
[2023-01-11 08:32] LABS: RBC MORPHOLOGY COMMENT ABNORMAL RBC MORPH
[2023-01-11 08:50] VITALS: BP 131/73; PULSE 71; RESP 19; TEMP 97.8
[2023-01-11] MEDS: CEFEPIME HCL 2 GM in DEXTROSE 5%-WATER 50 ML IV SCH ×2 (09:03→20:53)
[2023-01-11 11:05] VITALS: BP 122/71; PULSE 72; RESP 19; TEMP 98
[2023-01-11 15:42] VITALS: BP 127/68; PULSE 70; RESP 20; TEMP 97.6
[2023-01-11 19:46] VITALS: BP 126/68; PULSE 72; RESP 18; TEMP 98.5
[2023-01-12 00:02] VITALS: BP 115/64; PULSE 75; RESP 18; TEMP 98.2
[2023-01-12] MEDS: HEPARIN SODIUM,PORCINE 5,000 UNITS/ML VIAL SQ SCH ×3 (00:09→15:28)
[2023-01-12] MEDS: AZTREONAM 2 GM in DEXTROSE 5%-WATER 50 ML IV SCH ×3 (06:18→22:24)
[2023-01-12] MEDS ORDERED: SODIUM CHLORIDE 0.9% 250 ML IV ONE (06:19)
[2023-01-12 06:26] VITALS: BP 100/55; PULSE 67; RESP 18; TEMP 97.8
[2023-01-12 08:11] VITALS: BP 100/54; PULSE 72; RESP 18; TEMP 98.5
[2023-01-12] MEDS: CEFEPIME HCL 2 GM in DEXTROSE 5%-WATER 50 ML IV SCH ×2 (08:44→20:19)
[2023-01-12 11:40] VITALS: BP 101/54; PULSE 70; RESP 18; TEMP 97.6
[2023-01-12 15:47] VITALS: BP_SYST 101; BP_SYST 107; BP_DIAS 54; BP_DIAS 72; PULSE 70; PULSE 76; RESP 18; TEMP 97.6; TEMP 98.8
[2023-01-12 19:29] VITALS: BP 115/67; PULSE 81; RESP 18; TEMP 98.1
[2023-01-13 00:11] VITALS: BP 109/70; PULSE 83; RESP 18; TEMP 98.4
[2023-01-13 04:07] VITALS: BP 106/53; PULSE 67; RESP 18; TEMP 97.8
[2023-01-13] MEDS: AZTREONAM 2 GM in DEXTROSE 5%-WATER 50 ML IV SCH ×2 (06:01→13:49)
[2023-01-13 07:59] VITALS: BP 119/70; PULSE 88; RESP 17; TEMP 98.3
[2023-01-13] MEDS: HEPARIN SODIUM,PORCINE 5,000 UNITS/ML VIAL SQ SCH ×2 (09:06)
[2023-01-13] MEDS: CEFEPIME HCL 2 GM in DEXTROSE 5%-WATER 50 ML IV SCH (09:06)
[2023-01-13 11:21] VITALS: BP 114/54; PULSE 84; RESP 18; TEMP 98
[2023-01-13] MEDS ORDERED: INFLUENZA VIRUS VACCINE QVS 2023-24 (6MO+)/PF 60 MCG/0.5 ML SYRINGE IM. ONE (13:00)
== END 2023-01-13 15:00 | disposition home or self-care (01) | DRG 871 ==
LOC: EMS 17:40 → 5S 01-08 00:22
PROVIDERS: ADMIT Internal Medicine; ATTEND Internal Medicine
PROC: 30233N1 Transfusion of Nonautologous Red Blood Cells into Peripheral Vein, Percutaneous Approach (ICD-10-PCS; principal; 2023-01-07)
DX: A41.9 Sepsis, unspecified organism (principal); N17.0 Acute kidney failure with tubular necrosis; D62 Acute posthemorrhagic anemia; N39.0 Urinary tract infection, site not specified; E87.20 Acidosis, unspecified; N92.0 Excessive and frequent menstruation with regular cycle; E86.0 Dehydration; Z20.822 Contact with and (suspected) exposure to COVID-19
CPT/HCPCS: 71045; 74176; 80048; 80053; 81001; 83540; 83550; 83605; 83735; 83930; 83935; 84145; 84300; 84702; 85025; 85045; 85610; 86850; 86880; 86900; 86901; 86923; 87040; 87077; 87086; 87186; 87205; 87804; 90686; 93005; 99291; J0131; J0692; J0696; J1200; J1644; J2185; J2405; J3490; J7030; J7040; J7050; J7060; J7120; P9016; 36415-L1; 36415-TC; G0008